=== PATIENT | male | born 2000 | race American Indian/Alaskan Native ===

== ENCOUNTER 2019-04-13 05:29 | Emergency (ER) | payer OTHER ==
[2019-04-13 05:43] VITALS: BP 128/66
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
== END 2019-04-13 07:52 | disposition home or self-care (01) ==
LOC: ED 05:29
DX: M25.512 Pain in left shoulder (principal); M79.672 Pain in left foot; V49.49XA Driver injured in collision with other motor vehicles in traffic accident, initial encounter; Y93.89 Activity, other specified; Y92.488 Other paved roadways as the place of occurrence of the external cause; Y99.8 Other external cause status